=== PATIENT | female | born 1970 | race Two or more races ===

== ENCOUNTER 2016-06-06 22:12 | Emergency (ER) | payer SELFPAY ==
[~2016-06-06] VITALS: Ht 180.3 cm; Wt 75.5 kg
[2016-06-06] MEDS ORDERED: LEVO25TA9 PO (22:15)
[2016-06-07] MEDS ORDERED: LIDOCAINE HCL BUFFERED 1% W/EPI 1:100,000 20 ML VIAL INJ ONE (01:45)
[2016-06-07] MEDS ORDERED: AMOX TR/POT CLAV 875 MG/125 MG TABLET PO ONE (02:30)
[2016-06-07] MEDS ORDERED: NEOMYCIN/BACITRACIN/POLYMYXIN B OINTMENT PACKET TP ONE (02:30)
[2016-06-07 02:33] VITALS: BP 135/71
== END 2016-06-07 02:47 | disposition home or self-care (01) ==
LOC: EMS 22:15
DX: S41.112A Laceration without foreign body of left upper arm, initial encounter (principal); E03.9 Hypothyroidism, unspecified; Z88.4 Allergy status to anesthetic agent; W54.0XXA Bitten by dog, initial encounter; Y93.89 Activity, other specified; Y92.89 Other specified places as the place of occurrence of the external cause; Y99.8 Other external cause status
CPT/HCPCS: 12001; 99283; J3490